=== PATIENT | female | born 2000 | race Two or more races ===

== ENCOUNTER 2023-03-21 17:05 | Emergency (ER) | payer OTHER ==
[~2023-03-21] VITALS: Ht 157.5 cm; Wt 72.6 kg
[2023-03-21 18:44] LABS: HEMATOCRIT 38.1 % (36.0-45.00); HEMOGLOBIN 12.8 g/dL (12.0-15.00); MEAN CELL VOLUME 80.7 fL (80.00-100.00); MEAN CORPUSCULAR HEMOGLOBIN 27.2 pg (27.00-32.0); MEAN CORPUSCULAR HGB CONC 33.7 g/dl (32.0-36.0); PLATELET COUNT 233 K/uL (150-450); RED BLOOD COUNT 4.72 M/uL (4.00-6.00); RED CELL DISTRIBUTION WIDTH 13.3 % (11.5-14.5)
[2023-03-21 19:19] LABS: CALCIUM 8.9 mg/dL (8.5-10.1); CREATININE SERUM 0.57 mg/dL (0.55-1.02); GFR 133.89; POTASSIUM 4.16 mEq/L (3.5-5.1)
[2023-03-21 19:27] LABS: PH,URINE 7.5 (5.0-8.0); URINE APPEARANCE Turbid; URINE BILIRRUBIN Negative (NEGATIVE); URINE BLOOD Negative; URINE COLOR Yellow; URINE GLUCOSE Negative (NEGATIVE); URINE LEUKOCYTE Small; URINE NITRATE Negative; URINE PROTEIN Trace (NEGATIVE)
[2023-03-21 19:30] LABS: URINE BACTERIA 1854.6 uL (0.0-1933); URINE EPITHELIAL CELLS 47.2 uL (0.0-38.8); URINE RBC 8.4 uL (0.0-20.8); URINE WBC 26.7 uL (0.0-23.2)
[2023-03-21 19:51] LABS: URINE CRYSTALS MANY /HPF
== END 2023-03-21 22:11 | disposition home or self-care (01) ==
LOC: ER 17:05
PROVIDERS: Emergency Medicine
DX: O26.891 Other specified pregnancy related conditions, first trimester (principal); Z3A.01 Less than 8 weeks gestation of pregnancy; R11.10 Vomiting, unspecified; R10.2 Pelvic and perineal pain